=== PATIENT | female | born 1955 | race Caucasian/White ===

== ENCOUNTER 2018-01-14 00:42 | Emergency (ER) | payer MEDICARE, MEDICAID ==
[~2018-01-14] VITALS: Wt 68.0 kg
[~2018-01-14 00:42] MED LIST: ADIPEX37.5 MG PO; AMARYL4 MG PO; ANTIVERT/2525 MG PO; ASPIRIN81 M1 PO; ATIVAN0.5 MG PO; CIPRO500 MG PO; COREG6.25 MG PO; COZAAR100 MG PO; COZAAR50 MG PO; FLEXERIL10 MG PO; FLOMAX0.4 MG PO; IMDUR ER30 MG PO; IMDUR30 MG PO; MEDROL DOSEPAK4 MG PO; METFORMIN HCL1000 MG PO; MOBIC15 MG PO; MOTRIN800 MG PO; MULTIVITAMIN1 CTB PO; PERCOCET 325 MG1 TA2 PO; PLAVIX75 MG PO; PRAVACHOL40 MG PO; PRILOSEC20 M1 PO; SYNTHROID,LEVO25 MCG PO; TIMOPTIC OCUDOSE0.5% OP; Tranxene7.5 MG PO; VALTREX500 MG PO; VITAMIN D1000 IU PO; XALATAN 0.005%2.5 ML INTRAOC; [UNRECOGNIZED DRUG - OTHER]
[2018-01-14 01:08] LABS: BASO # 0.1 10*3/uL (0.0-0.1); BASO % 0.4 % (0.0-1.0); EOS # 0.2 10*3/uL (0.0-0.4); EOS % 1.7 % (1.0-4.0); HEMATOCRIT 38.2 % (37.0-47.0); HEMOGLOBIN 12.1 g/dl (12.0-16.0); LYMPH # 0.8 10*3/uL (1.3-4.4); LYMPH % 6.4 % (27.0-41.0); MEAN CELL VOLUME 84.7 fl (81.0-99.0); MEAN CORPUSCULAR HGB 26.8 pg (27.0-31.0); MEAN CORPUSCULAR HGB CONC 31.7 g/dl (33.0-37.0); MEAN PLATELET VOLUME 9.8 fl (9.6-12.3); MONO # 0.5 10*3/uL (0.1-1.0); MONO % 4.1 % (3.0-9.0); NEUT # 10.7 10*3/uL (2.3-7.9); NEUT % 87.1 % (47.0-73.0); PLATELET COUNT AUTOMATED 227 10*3/uL (130-400); RED BLOOD COUNT 4.51 10*6/uL (4.10-5.10); RED CELL DISTRI WIDTH 16.5 % (0-14.5); WHITE BLOOD COUNT 12.3 10*3/uL (4.8-10.8)
[2018-01-14 01:25] LABS: ALBUMIN 3.6 gm/dl (3.1-4.5); ALKALINE PHOSPHATASE 75 U/L (45-117); BUN 28 mg/dl (7-24); CHLORIDE 105 mmol/L (98-107); CREATININE 0.89 mg/dL (0.55-1.02); LIPASE 212 U/L (73-393); SGOT/AST 16 IU/L (3-35); SGPT/ALT 19 U/L (12-78); SODIUM 141 mmol/L (136-145); TOTAL PROTEIN 7.4 gm/dL (6.4-8.2)
[2018-01-14 01:26] LABS: TROPONIN I < 0.015 ng/ml (<0.045)
[2018-01-14] MEDS ORDERED: ZOFRAN ODT4 MG SL (02:28)
[2018-01-14 02:40] LABS: BILIRUBIN NEGATIVE (NEGATIVE); BLOOD NEGATIVE (NEGATIVE); CLARITY CLEAR (CLEAR); COLOR YELLOW (YELLOW); GLUCOSE NEGATIVE (NEGATIVE); KETONE 1+ (NEGATIVE); LEUKO ESTERASE NEGATIVE (NEGATIVE); NITRITE NEGATIVE (NEGATIVE); SPECIFIC GRAVITY 1.025 (1.005-1.030); UROBILINOGEN 0.2 E.U./dl (0.2-1.0)
[2018-01-14 02:49] LABS: BACTERIA 2+; WBC 0-2 wbc/hpf (0-5)
== END 2018-01-14 03:08 | disposition home or self-care (01) ==
LOC: ED 00:42
PROVIDERS: Emergency Medicine Emergency Medical Services
DX: K21.9 Gastro-esophageal reflux disease without esophagitis (principal); I25.10 Atherosclerotic heart disease of native coronary artery without angina pectoris; E78.5 Hyperlipidemia, unspecified; I10 Essential (primary) hypertension; Z68.34 Body mass index [BMI] 34.0-34.9, adult; E03.9 Hypothyroidism, unspecified; Z90.49 Acquired absence of other specified parts of digestive tract; Z90.710 Acquired absence of both cervix and uterus; Z95.1 Presence of aortocoronary bypass graft; Z88.2 Allergy status to sulfonamides; Z79.82 Long term (current) use of aspirin; Z79.899 Other long term (current) drug therapy

== ENCOUNTER → 2018-11-28 | Day surgery (SDC) | payer MEDICARE, MEDICAID ==
[~2018-11-28] VITALS: Ht 142.2 cm; Wt 49.9 kg
[~2018-11-28] MED LIST changes: +GAVISCON ES TA1 EACH PO; +ZOFRAN ODT4 MG SL
--- NOTE | ~2018-11-28 | O ---
[place], [place] OPERATIVE NOTE NAME: TRAVON RENAE UNIT #: [id number] ROOM: DOCTOR: SEEMA VÁZQUEZ,SAM BIRTHDATE: [birth year] DOS: 11/28/2018 GASTROENDOSCOPIC REPORT INDICATIONS: This is a 63-year-old patient who has presented with dyspepsia and abdominal pain. The patient has been on omeprazole 40 mg daily and Mobic as well. ALLERGIES: SULFA. FAMILY HISTORY: Noncontributory. PAST SURGICAL HISTORY: CABG x 4 vessels with stent, hysterectomy, and left hip. PAST MEDICAL HISTORY: Diabetes, hypertension, hypercholesterolemia, hypothyroidism, and coronary artery disease. SOCIAL HISTORY: Nonsmoker, nonalcohol consumer. PROCEDURE: Today's procedure part of investigation is panendoscopy and colonoscopy. PREMEDICATION: Propofol. SCOPE: Olympus forward-viewing gastroscope Q10 video. REPORT: After putting the patient in left lateral position and application of lubricant to the scope, the scope was introduced. Thereafter, under direct visualization, passed through the length of esophagus without difficulty. Small hiatal hernia noticed. Gastric pouch was entered. Gastritis seen. Antral biopsy obtained. Duodenal bulb, second and third part within normal limits. The patient was extubated after antral biopsy for H. pylori, tolerated the procedure well. IMPRESSION: Hiatal hernia and gastritis. PLAN AND DISCUSSION: Omeprazole 40 mg daily. Extra Strength, Gaviscon 1 tablet with each Mobic tablet she uses. Elevation of the head of the bed 6 inch all time and follow up routinely with you in office with us p.r.n. INDICATIONS: The patient has been complaining of change in bowel habits, leniency to constipation, abdominal pain, and colonic screening. PROCEDURE: Today's procedure part of investigation is colonoscopy. PREMEDICATION: Propofol. SCOPE: Olympus forward-viewing colonoscope 10L video. REPORT: After putting the patient in left lateral position and application of [place], [place] OPERATIVE NOTE NAME: TRAVON RENAE UNIT #: [id number] ROOM: DOCTOR: SAM STEPHENSON MD BIRTHDATE: [birth year] lubricant to the scope, the scope was introduced. Thereafter, under direct visualization, advanced through the length of colon without difficulty. Base of the cecum explored, appendiceal orifice identified, ileocecal valve was defined. Rare diverticulosis noticed, significant tortuosity of sigmoid colon was experienced. Air was suctioned out. The patient was extubated, tolerated the procedure well. IMPRESSION: Significance tortuosity of sigmoid colon. Rare diverticulosis. PLAN: High fiber fruit diet. ACTIVITY: Ad jemma. FOLLOWUP: Routinely with you in office, p.r.n. visit with us in [facility]. Thank you very much indeed for your kind referral. SAM STEPHENSON MD CM:OPRECORD:OPERATIVE NOTE [id number] SAM STEPHENSON MD 12/12/18 0724 interface
[2018-11-28 10:35] VITALS: BP 124/76
[2018-11-28 11:06] VITALS: BP 127/55
[2018-11-28 11:21] VITALS: BP 145/72
[2018-11-28 11:36] VITALS: BP 138/68
== END | disposition home or self-care (01) ==
LOC: SDC 11-26 10:15
DX: K63.89 Other specified diseases of intestine (principal); K57.30 Diverticulosis of large intestine without perforation or abscess without bleeding; K29.50 Unspecified chronic gastritis without bleeding; K44.9 Diaphragmatic hernia without obstruction or gangrene; K21.9 Gastro-esophageal reflux disease without esophagitis; E11.9 Type 2 diabetes mellitus without complications; I10 Essential (primary) hypertension; I25.10 Atherosclerotic heart disease of native coronary artery without angina pectoris; E78.00 Pure hypercholesterolemia, unspecified; E03.9 Hypothyroidism, unspecified; H40.9 Unspecified glaucoma; Z96.651 Presence of right artificial knee joint; Z88.2 Allergy status to sulfonamides; Z95.1 Presence of aortocoronary bypass graft; Z90.710 Acquired absence of both cervix and uterus; Z90.49 Acquired absence of other specified parts of digestive tract; Z98.890 Other specified postprocedural states; Z79.899 Other long term (current) drug therapy

== ENCOUNTER → 2018-12-19 | Outpatient (CLI) | payer MEDICARE, MEDICAID | END | disposition home or self-care (01) | LOC: MAMMO 11-29 08:40 | DX: Z12.31 Encounter for screening mammogram for malignant neoplasm of breast (principal) ==

== ENCOUNTER 2022-10-25 02:28 | Inpatient (IN) | payer OTHER ==
[~2022-10-25] VITALS: Ht 142.2 cm; Wt 55.6 kg
[2022-10-25] VITALS (10 sets, daily range): BP systolic 102–142; BP diastolic 54–84
[2022-10-25 02:55] LABS: BASO # 0.1 10*3/uL (0.0-0.1); BASO % 0.5 % (0.0-1.0); EOS # 0.2 10*3/uL (0.0-0.4); EOS % 1.6 % (1.0-4.0); HEMATOCRIT 37.6 % (37.0-47.0); LYMPH # 3.2 10*3/uL (1.3-4.4); LYMPH % 27.2 % (27.0-41.0); MEAN CELL VOLUME 74.5 fl (81.0-99.0); MEAN CORPUSCULAR HGB 23.2 pg (27.0-31.0); MEAN CORPUSCULAR HGB CONC 31.1 g/dl (33.0-37.0); MEAN PLATELET VOLUME 10.1 fl (9.6-12.3); MONO # 1.1 10*3/uL (0.1-1.0); MONO % 9.5 % (3.0-9.0); NEUT # 7.2 10*3/uL (2.3-7.9); NEUT % 60.9 % (47.0-73.0); PLATELET COUNT AUTOMATED 352 10*3/uL (130-400); RED BLOOD COUNT 5.05 10*6/uL (4.10-5.10); RED CELL DISTRI WIDTH 22.7 % (0-14.5); WHITE BLOOD COUNT 11.8 10*3/uL (4.8-10.8)
[2022-10-25 03:26] LABS: POTASSIUM 5.2 mmol/L (3.4-5.1); TOTAL PROTEIN 6.8 gm/dL (6.0-8.0)
[2022-10-25 05:16] LABS: POTASSIUM 5.3 mmol/L (3.4-5.1)
[2022-10-25] MEDS ORDERED: ACID REDUCER20 MG PO (05:37)
[2022-10-25] MEDS ORDERED: SERTRALINE HYDR25 MG PO (05:38)
[2022-10-25] MEDS ORDERED: WELLBUTRIN SR100 MG PO (05:38)
[2022-10-25] MEDS ORDERED: JARDIANCE10 MG PO (05:39)
[2022-10-25] MEDS ORDERED: Imdur SA60 MG PO (05:39)
[2022-10-25] MEDS ORDERED: FUROSEMIDE20 M1 PO (05:39)
[2022-10-25] MEDS ORDERED: ASPIRIN CHEWABL81 MG PO (05:40)
[2022-10-25] MEDS ORDERED: LEVOTHYROXINE25 MCG PO (05:40)
[2022-10-25] MEDS ORDERED: RANEXA500 M1 PO (05:40)
[2022-10-25] MEDS ORDERED: MELOXICAM7.5 MG PO (05:40)
[2022-10-25] MEDS ORDERED: LIPITOR40 MG PO (05:41)
[2022-10-25] MEDS ORDERED: KLOR-CON M1010 ME1 PO (05:41)
[2022-10-25] MEDS ORDERED: METFORMIN HYD1000 MG PO (05:42)
[2022-10-25] MEDS ORDERED: CARVEDILOL6.25 MG PO (05:42)
[2022-10-25] MEDS ORDERED: COZAAR50 M1 PO (05:42)
[2022-10-25 10:14] LABS: POTASSIUM 4.9 mmol/L (3.4-5.1)
[2022-10-25 22:13] LABS: BILIRUBIN Negative (Negative); BLOOD Negative (Negative); CLARITY Clear (Clear); COLOR Yellow (Yellow); GLUCOSE 3+ (Negative); KETONE Trace (Negative); LEUKO ESTERASE 2+ (Negative); NITRITE Positive (Negative); SPECIFIC GRAVITY 1.015 (1.001-1.030); UROBILINOGEN 0.2 E.U./dl (0.0-1.0)
[2022-10-25 22:44] LABS: BACTERIA 3+; WBC 41-50 wbc/hpf (0-5)
[2022-10-26] VITALS: BP 133/65
[2022-10-26 07:15] LABS: BASO # 0.1 10*3/uL (0.0-0.1); BASO % 0.8 % (0.0-1.0); EOS # 0.2 10*3/uL (0.0-0.4); EOS % 3.2 % (1.0-4.0); HEMATOCRIT 31.4 % (37.0-47.0); LYMPH # 2.7 10*3/uL (1.3-4.4); LYMPH % 37.8 % (27.0-41.0); MEAN CELL VOLUME 75.5 fl (81.0-99.0); MEAN CORPUSCULAR HGB 23.3 pg (27.0-31.0); MEAN CORPUSCULAR HGB CONC 30.9 g/dl (33.0-37.0); MEAN PLATELET VOLUME 9.7 fl (9.6-12.3); MONO # 0.8 10*3/uL (0.1-1.0); MONO % 10.7 % (3.0-9.0); NEUT # 3.4 10*3/uL (2.3-7.9); NEUT % 47.2 % (47.0-73.0); PLATELET COUNT AUTOMATED 251 10*3/uL (130-400); RED BLOOD COUNT 4.16 10*6/uL (4.10-5.10); RED CELL DISTRI WIDTH 22.7 % (0-14.5); WHITE BLOOD COUNT 7.2 10*3/uL (4.8-10.8)
[2022-10-26 07:38] LABS: CHLORIDE 108 mmol/L (98-107); FREE T4 1.29 ng/dl (0.89-1.76); THYROID STIM HORMONE (HS) 1.833 uIU/ml (0.550-4.780)
[2022-10-26 07:47] VITALS: BP 110/68
[2022-10-26 07:47] LABS: BUN 17 mg/dl (9-23)
[2022-10-26 09:19] LABS: VITAMIN D, 25-HYDROXY 41.8 ng/mL (30-100)
[2022-10-26 12:00] VITALS: BP 140/76
[2022-10-26] MEDS ORDERED: Carafate1 GM PO (13:42)
[2022-10-26] MEDS ORDERED: CEPHALEXIN500 M1 PO (13:42)
[2022-10-26] MEDS ORDERED: PROTONIX40 MG PO (13:42)
== END 2022-10-26 16:37 | disposition home health service (06) | DRG 391 ==
LOC: ED 02:28 → 5E 03:54 → EDHOLD 03:54 → 5E 15:37
PROVIDERS: Internal Medicine; Student in an Organized Health Care Education/Training Program; ADMIT Internal Medicine; ATTEND Internal Medicine
PROC: 0DB78ZX Excision of Stomach, Pylorus, Via Natural or Artificial Opening Endoscopic, Diagnostic (ICD-10-PCS; principal; 2022-10-25)
DX: K29.70 Gastritis, unspecified, without bleeding (principal); N17.0 Acute kidney failure with tubular necrosis; E87.1 Hypo-osmolality and hyponatremia; N30.00 Acute cystitis without hematuria; E86.0 Dehydration; Z96.651 Presence of right artificial knee joint; N18.9 Chronic kidney disease, unspecified; E83.42 Hypomagnesemia; I25.10 Atherosclerotic heart disease of native coronary artery without angina pectoris; E78.5 Hyperlipidemia, unspecified; E66.9 Obesity, unspecified; D72.829 Elevated white blood cell count, unspecified; D50.9 Iron deficiency anemia, unspecified; E87.5 Hyperkalemia; E11.65 Type 2 diabetes mellitus with hyperglycemia; E53.8 Deficiency of other specified B group vitamins; I12.9 Hypertensive chronic kidney disease with stage 1 through stage 4 chronic kidney disease, or unspecified chronic kidney disease; E11.22 Type 2 diabetes mellitus with diabetic chronic kidney disease; E83.39 Other disorders of phosphorus metabolism; E87.8 Other disorders of electrolyte and fluid balance, not elsewhere classified; Z88.2 Allergy status to sulfonamides; Z90.49 Acquired absence of other specified parts of digestive tract; Z90.710 Acquired absence of both cervix and uterus; Z95.1 Presence of aortocoronary bypass graft; Z79.82 Long term (current) use of aspirin; Z79.899 Other long term (current) drug therapy; Z68.27 Body mass index [BMI] 27.0-27.9, adult

== ENCOUNTER → 2023-01-10 | Outpatient (CLI) | payer OTHER ==
[~2023-01-10] MED LIST changes: +ACID REDUCER20 MG PO; +ASPIRIN CHEWABL81 MG PO; +CARVEDILOL6.25 MG PO; +CEPHALEXIN500 M1 PO; +COZAAR50 M1 PO; +Carafate1 GM PO; +FUROSEMIDE20 M1 PO; +Imdur SA60 MG PO; +JARDIANCE10 MG PO; +KLOR-CON M1010 ME1 PO; +LEVOTHYROXINE25 MCG PO; +LIPITOR40 MG PO; +MELOXICAM7.5 MG PO; +METFORMIN HYD1000 MG PO; +PROTONIX40 MG PO; +RANEXA500 M1 PO; +SERTRALINE HYDR25 MG PO; +WELLBUTRIN SR100 MG PO
== END | disposition home or self-care (01) ==
LOC: RAD 11:21
PROVIDERS: ATTEND Internal Medicine
DX: M25.552 Pain in left hip (principal); Z96.642 Presence of left artificial hip joint

== ENCOUNTER → 2023-01-27 | Outpatient (CLI) | payer OTHER | END | disposition home or self-care (01) | LOC: RAD 11:42 | PROVIDERS: ATTEND Internal Medicine | DX: M51.36 Other intervertebral disc degeneration, lumbar region (principal); M25.78 Osteophyte, vertebrae ==

== ENCOUNTER 2023-08-15 13:41 | Emergency (ER) | payer OTHER ==
[~2023-08-15] VITALS: Ht 142.2 cm; Wt 45.4 kg
[2023-08-15 14:40] LABS: BASO # 0.1 10*3/uL (0.0-0.1); BASO % 0.7 % (0.0-1.0); EOS # 0.3 10*3/uL (0.0-0.4); EOS % 3.5 % (1.0-4.0); HEMATOCRIT 31.5 % (37.0-47.0); LYMPH # 1.7 10*3/uL (1.3-4.4); LYMPH % 19.6 % (27.0-41.0); MEAN CELL VOLUME 80.6 fl (81.0-99.0); MEAN CORPUSCULAR HGB 25.3 pg (27.0-31.0); MEAN CORPUSCULAR HGB CONC 31.4 g/dl (33.0-37.0); MEAN PLATELET VOLUME 9.5 fl (9.6-12.3); MONO # 0.7 10*3/uL (0.1-1.0); MONO % 8.2 % (3.0-9.0); NEUT # 5.7 10*3/uL (2.3-7.9); NEUT % 67.8 % (47.0-73.0); PLATELET COUNT AUTOMATED 348 10*3/uL (130-400); RED BLOOD COUNT 3.91 10*6/uL (4.10-5.10); RED CELL DISTRI WIDTH 19.2 % (0-14.5); WHITE BLOOD COUNT 8.5 10*3/uL (4.8-10.8)
[2023-08-15 14:48] LABS: BILIRUBIN Negative (Negative); BLOOD Negative (Negative); CLARITY Clear (Clear); COLOR Yellow (Yellow); GLUCOSE 3+ (Negative); KETONE Negative (Negative); LEUKO ESTERASE Negative (Negative); NITRITE Negative (Negative); UROBILINOGEN 0.2 E.U./dl (0.0-1.0)
[2023-08-15 14:52] LABS: ACT PARTIAL THROMBO TIME 23.9 SECONDS (20.0-32.1); INTERNATIONAL NORM RATIO 1.1 (2.0-3.5)
[2023-08-15 15:01] LABS: ALKALINE PHOSPHATASE 59 U/L (46-116); BUN 16 mg/dl (9-23); CHLORIDE 104 mmol/L (98-107); LIPASE 49 U/L (12-53); POTASSIUM 3.6 mmol/L (3.4-5.1); SGPT/ALT 14 U/L (5-49); TOTAL PROTEIN 6.8 gm/dL (6.0-8.0)
[2023-08-15 15:06] LABS: WBC 0-2 wbc/hpf (0-5)
== END 2023-08-15 17:10 | disposition home or self-care (01) ==
LOC: ED 13:41
PROVIDERS: Emergency Medicine
DX: S01.01XA Laceration without foreign body of scalp, initial encounter (principal); Z79.82 Long term (current) use of aspirin; Z88.2 Allergy status to sulfonamides; Z79.2 Long term (current) use of antibiotics; Z79.899 Other long term (current) drug therapy; Z90.49 Acquired absence of other specified parts of digestive tract; Z90.711 Acquired absence of uterus with remaining cervical stump; Z96.651 Presence of right artificial knee joint; W22.01XA Walked into wall, initial encounter; Y93.89 Activity, other specified; Y92.89 Other specified places as the place of occurrence of the external cause; Y99.8 Other external cause status